=== PATIENT | male | born 1995 | race Caucasian/White ===

== ENCOUNTER 2017-07-06 19:47 | Emergency (ER) | payer SELFPAY ==
[2017-07-06 20:02] VITALS: BMI 16.7
[2017-07-06] MEDS ORDERED: Oxycodone/Acetaminophen 5/325 mg Tab PO STA (20:21)
--- NOTE | 2017-07-06 20:24 | ED PDOC ---
Arrival/HPI <Sunny De Jesus - Last Filed: 07/06/17 22:03> - General Historian: Patient - History of Present Illness Time/Duration: Prior to Arrival Symptom Onset: Sudden Symptom Course: Worsening Quality: Stabbing Severity Level: Moderate Activities at Onset: Rest Context: Home <Keith Black - Last Filed: 07/07/17 06:10> - General Chief Complaint: Headache Time Seen by Provider: 07/06/17 19:48 - History of Present Illness Narrative History of Present Illness (Text): 07/06/17 20:21 This is a 22 yo male with no past medical hx presenting to ER with chief complaint of headache. Headache began at 6 PM today. It came on suddenly. He says it has never happened before. He says the headache is all over, with no radiation. It is intermittent in nature. It lasts 15-20 mins when it comes. Describes it as a "stabbing" sensation. No fevers, chills, vomiting, nausea, seizure activity, neck pain. Tried tylenol with no relief. PMH: None PSH: None Allergies: NKDA FH: HTN Home meds: none Social hx: current smoker. denies drinking, drug use. Born in [place]. (Keith Black) Past Medical History - Provider Review Nursing Documentation Reviewed: Yes - Travel History Have you recently traveled outside [place] w/in the past 3 mons?: No - Past History Past History: No Previous - Infectious Disease Hx of Infectious Diseases: None - Tetanus Immunization Tetanus Immunization: Unknown - Cardiac Hx Cardiac Disorders: No - Pulmonary Hx Respiratory Disorders: No - Neurological Hx Neurological Disorder: No - HEENT Hx HEENT Disorder: No - Renal Hx Renal Disorder: No - Endocrine/Metabolic Hx Endocrine Disorders: No - Hematological/Oncological Hx Blood Disorders: No - Integumentary Hx Dermatological Disorder: No - Musculoskeletal/Rheumatological Hx Musculoskeletal Disorders: No - Gastrointestinal Hx Gastrointestinal Disorders: No - Genitourinary/Gynecological Hx Genitourinary Disorders: No - Psychiatric Hx Psychophysiologic Disorder: No Hx Substance Use: No - Anesthesia Hx Anesthesia: No <Keith Black - Last Filed: 07/07/17 06:10> Family/Social History - Physician Review Nursing Documentation Reviewed: Yes Family/Social History: Hypertension Smoking Status: Current Some Days Smoker Hx Alcohol Use: No Hx Substance Use: No Hx Substance Use Treatment: No <Keith Black - Last Filed: 07/07/17 06:10> Allergies/Home Meds <Sunny De Jesus - Last Filed: 07/06/17 22:03> <Keith Black - Last Filed: 07/07/17 06:10> Allergies/Adverse Reactions: Allergies No Known Allergies Allergy (Verified 07/06/17 20:01) Review of Systems - Review of Systems Constitutional: absent: Fevers, Night Sweats Eyes: absent: Vision Changes, Photophobia ENT: absent: Hearing Changes, Tinnitus Respiratory: absent: SOB, Cough Cardiovascular: absent: Chest Pain, Palpitations Gastrointestinal: absent: Abdominal Pain, Stool Changes Genitourinary Male: absent: Dysuria, Frequency Musculoskeletal: absent: Arthralgias, Back Pain Skin: absent: Rash, Pruritis Neurological: Headache. absent: Dizziness, Focal Weakness Endocrine: absent: Diaphoresis, Polyuria Hemo/Lymphatic: absent: Adenopathy, Easy Bleeding Psychiatric: absent: Anxiety, Depression <Keith Black - Last Filed: 07/07/17 06:10> Physical Exam Vital Signs Reviewed: Yes Appearance: Positive for: Well-Appearing Mental Status: Positive for: Alert and Oriented X 3 - Systems Exam Head: Present: Atraumatic, Normocephalic Pupils: Present: PERRL Extroacular Muscles: Present: EOMI Mouth: Present: Moist Mucous Membranes Neck: Present: Normal Range of Motion. No: MIDLINE TENDERNESS Respiratory/Chest: Present: Clear to Auscultation. No: Respiratory Distress Cardiovascular: Present: Regular Rate and Rhythm, Normal S1, S2 Abdomen: No: Tenderness, Distention, Peritoneal Signs Upper Extremity: Present: Normal Inspection. No: Cyanosis, Edema Lower Extremity: Present: Normal Inspection. No: Edema Neurological: Present: CN II-XII Intact, Speech Normal Skin: Present: Warm, Dry Psychiatric: Present: Alert, Oriented x 3, Normal Insight, Normal Concentration <Keith Black - Last Filed: 07/07/17 06:10> Vital Signs Temp Pulse Resp BP Pulse Ox 07/06/17 22:00 98.6 F 80 17 135/85 100 07/06/17 20:03 98.1 F 90 16 135/79 97 07/06/17 20:02 98.1 F 90 16 135/79 100 Medical Decision Making <Sunny De Jesus - Last Filed: 07/06/17 22:03> <Keith Black - Last Filed: 07/07/17 06:10> ED Course and Treatment: Patient Seen With Resident: In agreement with resident note which contains more details about the patient. Patient was seen and evaluated with resident. Came up with plan and treatment together. (Sunny De Jesus) - RAD Interpretation Radiology Orders: 07/06/17 20:20 HEAD W/O CONTRAST [CT] Stat - Medication Orders Current Medication Orders: Discontinued Medications Oxycodone/Acetaminophen (Percocet 5/325 Mg Tab) 1 tab PO STAT STA Stop: 07/06/17 20:22 Last Admin: 07/06/17 20:26 Dose: 1 tab MAR Pain Assessment Document 07/06/17 20:26 AB (Rec: 07/06/17 20:26 AB [id number]) Pain Reassessment Is this a pain reassessment? Yes Sleep Is patient sleeping during reassessment? No Presence of Pain Presence of Pain Yes Pain Scale Used Pain Scale Used Numeric Location Upper or Lower Upper Pain Location Body Cable Television Line Technician Description Description Constant Pain Behavior Irritability Aggravating Factors ADL's Alleviating Factors/Management Medication Techniques Alleviating Factors Medication - PA / BOX [employer]ING UPHOLSTERER / Resident Statement MD/DO has reviewed & agrees with the documentation as recorded. MD/DO has examined the patient and agrees with the treatment plan. <Sunny De Jesus - Last Filed: 07/06/17 22:03> Disposition/Present on Arrival <Sunny De Jesus - Last Filed: 07/06/17 22:03> - Present on Arrival Any Indicators Present on Arrival: No History of DVT/PE: No History of Uncontrolled Diabetes: No Urinary Catheter: No History of Decub. Ulcer: No History Surgical Site Infection Following: None - Disposition Have Diagnosis and Disposition been Completed?: Yes Disposition Time: 00:00 Patient Plan: Discharge <Keith Black - Last Filed: 07/07/17 06:10> - Disposition Diagnosis: Headache Disposition: HOME/ ROUTINE Condition: STABLE Discharge Instructions (ExitCare): Acute Headache (ED) Prescriptions: Acetaminophen/Butalbital/Caf [Fioricet] 1 tab PO Q4 PRN #30 tab PRN Reason: Headache Referrals: PCP,NO [Primary Care Provider] - Follow up with primary Forms: [employer] ([place])
--- NOTE | 2017-07-06 22:25 | CT ---
EXAM: CT Head Without Intravenous Contrast EXAM DATE/TIME: 07/06/2017 8:20 PM CLINICAL HISTORY: The patient age is 22 years old and is male; Pain; Headache; Headache not specified Facility exam id and description: Ct heads head w/o contrast TECHNIQUE: Axial computed tomography images of the head/brain without intravenous contrast. All CT scans at this facility use one or more dose reduction techniques, viz.: automated exposure control; ma/kV adjustment per patient size (including targeted exams where dose is matched to indication; i.e. head); or iterative reconstruction technique. COMPARISON: CT - HEAD W/O CONTRAST 2016-09-08 13:27 FINDINGS: Brain: The white-hinson differentiation is preserved demonstrating no acute territorial type infarct. No acute intracranial hemorrhage is seen. Midline shift: There is no midline shift. Ventricles: No ventriculomegaly. Bones/joints: The calvarium demonstrates no evidence for a depressed fracture. Soft tissues: No acute abnormality. Sinuses: There is mild mucosal thickening of the left maxillary sinus. Mastoid air cells: No mastoid effusion. IMPRESSION: 1. No acute intracranial abnormality. 2. Paranasal sinus disease is noted above.
[2017-07-06 23:03] VITALS: BP 135/85; PULSE 80; RESP 17; TEMP 98.6; O2SAT 100
== END 2017-07-06 23:03 | disposition home or self-care (01) ==
LOC: ED 19:47
DX: R51 Headache (principal); F17.200 Nicotine dependence, unspecified, uncomplicated